=== PATIENT | female | born 1950 | race Caucasian/White ===

== ENCOUNTER 2020-02-05 11:39 | Inpatient (IN) | payer MEDICARE, OTHER ==
[~2020-02-05] VITALS: Ht 165.1 cm; Wt 76.7 kg
[~2020-02-05 11:39] MED LIST: AMITRIPTYLINE H25 MG PO; ASPIRIN325 MG PO; CARVEDILOL6.25 MG PO; CYMBALTA30 MG PO; GABAPENTIN800 MG PO; HYDROCHLOROTHIA25 MG PO; IBUPROFEN400 MG PO; LEVEMIR100 UNIT/1 SC; LIDOCAINE; MONTELUKAST SOD10 MG PO; NEXIUM40 MG PO; NOVOLOG MI100 UNIT/1 SC; SIMVASTATIN20 MG PO; TYLENOL WITH C1 EACH PO; ULTRACET TABLE1 EACH PO
--- OUTSIDE RECORDS SUMMARY | 2020-02-05 11:58 | XMS REPORT | Continuity of Care Document ---
Author Author [facility] Organization [facility] Address [address] [place] [address] Phone Unavailable Care Team Providers Care Manager Credit Name Role Phone Unavailable Unavailable Payers Payer Name Policy Type Policy Number Effective Date Expiration Date S ource Problems This patient has no known problems. Allergies, Adverse Reactions, Alerts Allergy Name Allergy Type Status Severity Reaction(s) Onset Date Inacti ve Date Treating Clinician Comments Source adhesive tape DA Active U 2018-11-17 00:00:00 [facility] blueberry DA Active U 2018-11-17 00:00:00 [facility] blueberry FA Active U 2018-11-17 00:00:00 [facility] No Known Allergies DA Active U 2018-08-25 00:00:00 [facility] adhesive tape DA Active SV 2018-02-14 00:00:00 [facility] adhesive DA Active DC 2018-01-23 00:00:00 [facility] blueberry DA Active MO 2018-01-23 00:00:00 [facility] Medications This patient has no known medications. Procedures This patient has no known procedures. Results Test Description Test Time Test Comments Results Result Comments Source GLUBED 2019-08-06 20:02:00 Test Item GLUBED (test code = GLUBED) 142 mg/dL 74-106 H Performed by certified automatic coil machine operator at [facility] [id number] 16:09:00* Test Item Value Reference Range Interpretation Comments GLUBED (test code = GLUBED) 109 mg/dL 74-106 H Performed by certified automatic coil machine operator at [facility] [id number] 11:24:00* Test Item Value Reference Range Interpretation Comments GLUBED (test code = GLUBED) 186 mg/dL 74-106 H Performed by certified automatic coil machine operator at [facility] [id number] 08:14:00* Test Item Value Reference Range Interpretation Comments GLUBED (test code = GLUBED) 138 mg/dL 74-106 H Performed by certified automatic coil machine operator at [facility] [id number] 20:30:00* Test Item Value Reference Range Interpretation Comments GLUBED (test code = GLUBED) 189 mg/dL 74-106 H Performed by certified automatic coil machine operator at [facility] [id number] 16:40:00* Test Item Value Reference Range Interpretation Comments GLUBED (test code = GLUBED) 131 mg/dL 74-106 H Performed by certified automatic coil machine operator at [facility] [id number] 12:27:00* Test Item Value Reference Range Interpretation Comments GLUBED (test code = GLUBED) 159 mg/dL 74-106 H Performed by certified automatic coil machine operator at [facility] [id number] 08:43:00* Test Item Value Reference Range Interpretation Comments GLUBED (test code = GLUBED) 101 mg/dL 74-106 N Performed by certified automatic coil machine operator at [facility] [id number] 19:53:00* Test Item Value Reference Range Interpretation Comments GLUBED (test code = GLUBED) 192 mg/dL 74-106 H Performed by certified automatic coil machine operator at [facility] [id number] 15:59:00* Test Item Value Reference Range Interpretation Comments GLUBED (test code = GLUBED) 203 mg/dL 74-106 H Performed by certified automatic coil machine operator at [facility] [id number] 11:17:00* Test Item Value Reference Range Interpretation Comments GLUBED (test code = GLUBED) 151 mg/dL 74-106 H Performed by certified automatic coil machine operator at [facility] LIPID PROFILE (CORONARY RISK)2019-08-04 08:58:00* Test Item Value Reference Range Interpretation Comments TRIGLYCERIDES (test code = TRIG) 132 mg/dL 20-150 N CHOLESTEROL (test code = CHOL) 196 mg/dL 0-200 N CHOLESTEROL/HDL RATIO (test code = CHOLHDL) 5.0 RATIO 0-4.9 H RISK ASSOCIATED WITH CHOL/HDL RATIOS: Risk Male Female1/2 AVERAGE 3.43 3.27AVERAGE 4.97 4.442X AVERAGE 9.55 7.053X AVERAGE 23.39 11.04 REFERENCE VALUE IS RELATED TO RISK LEVELS ASRECOMMENDED BY THE J[facility]ANITA. HEART, LUNG, AND BLOOD INST. HDL CHOLESTEROL (test code = HDL) 34 mg/dL 40-60 L LIPOPROTEIN LDL (test code = LDL) 137 mg/dL 100-129 H RN PERSONNEL, CONTACT PHYSICIAN IMMEDIATELY IF THIS IS A STROKE, AMI OR CAROTID STENOSIS PATIENT WHEN THE LDL >100 (1ST OCCURENCE, THIS ADMISSION) Reference Interval: mg/dL mmol/L Optimal <100 <2.6Near/above optimal 100-129 2.6- 3.3Borderline High 130-159 3.4-4.1High 160-189 4.1-4.9Very High >=190 >=4.9========= This LDL result is a direct measurement.========= [id number] 08:58:00* Test Item Value Reference Range Interpretation Comments GLYCOSYLATED HEMOGLOBIN (HA1C) (test code = GLYHGB) 6.9 % HbA1 SUGGESTED DIAGNOSIS: HbA1C (%) Diabetic >6.4Prediabetes 5.7 - 6.4Normal <5.7 ESTIMATED AVERAGE GLUCOSE (test code = EAG) 151 MG/DL [id number] 08:33:00* Test Item Value Reference Range Interpretation Comments GLUBED (test code = GLUBED) 134 mg/dL 74-106 H Performed by certified automatic coil machine operator at [facility] BASIC METABOLIC [id number] 05:48:00* Test Item Value Reference Range Interpretation Comments SODIUM (test code = NA) 137 mmol/L 136-145 N POTASSIUM (test code = K) 4.3 mmol/L 3.5-5.1 N CHLORIDE (test code = CL) 103.0 mmol/L 98-107 N CARBON DIOXIDE (test code = CO2) 28.0 mmol/L 21-32 N ANION GAP (test code = GAP) 10.3 10-20 N GLUCOSE (test code = GLU) 135 mg/dL 74-106 H BLOOD UREA NITROGEN (test code = BUN) 17 mg/dL 7-18 N GLOMERULAR FILTRATION RATE (test code = GFR) > 60 mL/min >=60 Estimated GFR by using Modified MDRD formula.Chronic kidney disease is defined as either kidney damageor GFR <60 mL/min/1.73 m2 for >3 months. CREATININE (test code = CREAT) 0.90 mg/dL 0.55-1.02 N Note change in reference range due to change in reagent. BUN/CREATININE RATIO (test code = BUN/CREA) 18.9 10-20 N CALCIUM (test code = CA) 8.2 mg/dL 8.5-10.1 L BASIC METABOLIC [id number] 05:40:00* Test Item Value Reference Range Interpretation Comments SODIUM (test code = NA) 137 mmol/L 136-145 N POTASSIUM (test code = K) 4.3 mmol/L 3.5-5.1 N CHLORIDE (test code = CL) 103.0 mmol/L 98-107 N CARBON DIOXIDE (test code = CO2) mmol/L 21-32 ANION GAP (test code = GAP) 10-20 GLUCOSE (test code = GLU) mg/dL 74-106 BLOOD UREA NITROGEN (test code = BUN) mg/dL 7-18 GLOMERULAR FILTRATION RATE (test code = GFR) mL/min >=60 CREATININE (test code = CREAT) mg/dL 0.55-1.02 BUN/CREATININE RATIO (test code = BUN/CREA) 10-20 CALCIUM (test code = CA) mg/dL 8.5-10.1 CBC W/AUTO [id number] 05:17:00* Test Item Value Reference Range Interpretation Comments WHITE BLOOD CELL (test code = WBC) 7.6 K/mm3 4.5-12.5 N RED BLOOD CELL (test code = RBC) 3.80 mill/mm3 3.7-5.2 N HEMOGLOBIN (test code = HGB) 10.9 gram/dL 11.5-15.5 L HEMATOCRIT (test code = HCT) 33.9 % 36.0-46.0 L MEAN CELL VOLUME (test code = MCV) 89.2 fL 80-98 N MEAN CELL HGB (test code = MCH) 28.7 picogram 27.0-33.0 N MEAN CELL HGB CONCETRATION (test code = MCHC) 32.2 gram/dL 33.0-36. 0 L RED CELL DISTRIBUTION WIDTH (test code = RDW) 13.1 % 11.6-16. 2 N RED CELL DISTRIBUTION WIDTH SD (test code = RDW-SD) 42.5 fL 37 .0-51.0 N PLATELET COUNT (test code = PLT) 151 K/mm3 150-450 N MEAN PLATELET VOLUME (test code = MPV) 9.4 fL 6.7-11.0 N NEUTROPHIL % (test code = NT%) 74.2 % 39.0-69.0 H IMMATURE GRANULOCYTE % (test code = IG%) 0.5 % 0.0-5.0 N LYMPHOCYTE % (test code = LY%) 16.4 % 25.0-55.0 L MONOCYTE % (test code = MO%) 8.8 % 0.0-10.0 N EOSINOPHIL % (test code = EO%) 0.0 % 0.0-5.0 N BASOPHIL % (test code = BA%) 0.1 % 0.0-1.0 N NUCLEATED RBC % (test code = NRBC%) 0.0 % 0-0 N NEUTROPHIL # (test code = NT#) 5.62 K/mm3 1.8-7.7 N IMMATURE GRANULOCYTE # (test code = IG#) 0.04 x10 3/uL 0-0.03 H LYMPHOCYTE # (test code = LY#) 1.24 K/mm3 1.0-5.0 N MONOCYTE # (test code = MO#) 0.67 K/mm3 0-0.8 N EOSINOPHIL # (test code = EO#) 0.00 K/mm3 0.0-0.5 N BASOPHIL # (test code = BA#) 0.01 K/mm3 0.0-0.2 N NUCLEATED RBC # (test code = NRBC#) 0.00 K/mm3 0.0-0.1 N MANUAL DIFF REQUIRED (test code = MDIFF) NO [id number] 20:19:00* Test Item Value Reference Range Interpretation Comments GLUBED (test code = GLUBED) 160 mg/dL 74-106 H Performed by certified automatic coil machine operator at [facility] [id number] 16:37:00* Test Item Value Reference Range Interpretation Comments GLUBED (test code = GLUBED) 153 mg/dL 74-106 H Performed by certified automatic coil machine operator at [facility] - CT NECK W/O [id number] 14:01:00 Name: HERBIE STONER [facility] : 1950 Age/S: 68 / F [address] [facility] Unit #: [id number] Loc: [place], [place] [address] Phys: Michelle Barrientos MD Acct: [id number] Dis Date: 08/06/2019 Status: DIS IN PHONE #: [phone] Exam Date: 08/03/2019 1304 FAX #: [phone] Reason: ANATOMY OF NECK PRIOR TO SURGERY EXAMS: CPT CODE: [id number] CT NECK W/O CONTRAST 82690 HISTORY: Airway evaluation prior to surgery. COMPARISON: None available. Location: [facility]. CT neck with contrast: Automated exposure control. The visualized brain parenchyma is unremarkable. Unremarkable intraorbital contents. Visualized paranasal sinuses and the mastoid air cells are clear. Extensive resection of the left hard and soft palate with fatty packing. No evidence for mass or mass effect on this noncontrast study. The base of the tongue and oral tongue demonstrating resection on the left side with surgical clips and fatty packing. No mass effect is noted. Postop changes within the mandible with mandibular plate both on the right in the left side stabilizing the mandibles. Symmetrical fossa of Rosenmueller and parapharyngeal spaces. No retropharyngeal collection. No tonsillar collection. The tonsils are not enlarged. Uvula remains midline. Prevertebral space appears unremarkable. The carotid spaces appear unr emarkable. Parotid spaces are unremarkable but partially obscured on the l eft due to artifact from the mandibular hardware. Resected submandibular g lands bilaterally as well. Extensive jaun dissection on the left side. No pathologic adenopathy on either side. Epiglottis and aryepi glottic folds are normal. Vallecula and the piriform sinuses are unremarka ble. The true and false cords are normal. Very small right thyroid gland. Lobular heterogeneous left thyroid gland. Superior mediastinum is unremark able. The lung apices are clear. No lytic or blastic lesions are noted wit hin the bony skeleton. IMPRESSION: Widel y patent airway. No obstruction is noted. Postop changes along the left side along the hard and the soft palate with extensive jaun dissection and resection of the submandibular glands bilaterally. No dissection as well of the left base of the tongue and oral tongue. No evidence of mass or mass effect. No pathologic adenopathy visible. PAGE 1 Signed Report (CONTINUED) Name: HERBIE STONER [facility] : 1950 Age/S: 68 / F [address] Unit #: [id number] Loc: [place] [address] Phys: Michelle Barrientos MD Acct: [id number] Dis Date: 08/06/2019 Status: DIS IN PHONE #: [phone] Exam Date: 08/03/2019 1304 FAX #: [phone] Reason: ANATOMY OF NECK PRIOR TO SURGERY EXAMS: CPT CODE: [id number] CT NECK W/O CONTRAST 56488 <Continued> at 1401 Reported and signed by: Gustavo Tse M.D. CC: Bret Interiano MD; Michelle Barrientos MD Technologist:Carol PedroRT(R),CT CTDI: DLP: Trnscb Date/Time: 08/03/2019 (1401) t.SDR.TH4 Orig Print D/T: S: 08/03/2019 (6477) PAGE 2 Signed Report - CT NECK W/O [id number] 14:01:00 Name: HERBIE STONER [facility] : 1950 Age/S: 68 / [facility] [address] [facility]: [id number] Loc: [place] [address] Phys: Michelle Barrientos MD Acct: [id number] Dis Date: Status: REG [facility] PHONE #: [phone] Exam Date: 08/03/2019 1304 FAX #: [phone] Reason: ANATOMY OF NECK PRIOR TO SURGERY EXAMS: CPT CODE: [id number] CT NECK W/O CONTRAST 76037 HISTORY: Airway evaluation prior to surgery. COMPARISON: None available. Location: [facility]. CT neck with contrast: Automated exposure control. The visualized brain parenchyma is unremarkable. Unremarkable intraorbital contents. Visualized paranasal sinuses and the mastoid air cells are clear. Extensive resection of the left hard and soft palate with fatty packing. No evidence for mass or mass effect on this noncontrast study. The base of the tongue and oral tongue demonstrating resection on the left side with surgical clips and fatty packing. No mass effect is noted. Postop changes within the mandible with mandibular plate both on the right in the left side stabilizing the mandibles. Symmetrical fossa of Rosenmueller and parapharyngeal spaces. No retropharyngeal collection. No tonsillar collection. The tonsils are not enlarged. Uvula remains midline. Prevertebral space appears unremarkable. The carotid spaces appear unremarkable. Parotid spaces are unremarkable but partially obscured on the left due to artifact from the mandibular hardware. Resected submandibular glands bilaterally as well. Extensive jaun dissection on the left side. No pathologic adenopathy on either side. Epiglottis and aryepiglottic folds are normal. Vallecula and the piriform sinuses are unremarkable. The true and false cords are normal. Very small right thyroid gland. Lobular heterogeneous left thyroid gland. Superior mediastinum is unremarkable. The lung apices are clear. No lytic or blastic lesions are noted within the bony skeleton. IMPRESSION: Widely patent airway. No obstruction is noted. Postop changes along the left side along the hard and the soft palate with extensive jaun dissection and resection of the submandibular glands bilaterally. No dissection as well of the left base of the tongue and oral tongue. No evidence of mass or mass effect. No pathologic adenopathy visible. PAGE 1 Signed Report (CONTINUED) Name: HERBIE STONER [facility] : 1950 Age/S: 68 / F [address] [facility] Unit #: [id number] Loc: [place] [address] Phys: Michelle Barrientos MD Acct: [id number] Dis Date: Status: REG [facility] PHONE #: [phone] Exam Date: 08/03/2019 1304 FAX #: [phone] Reason: ANATOMY OF NECK PRIOR TO SURGERY EXAMS: CPT CODE: [id number] CT NECK W/O CONTRAST 47978 <Continued> at 1401 Reported and signed by: Gustavo Tse M.D. CC: Bret Interiano MD; Michelle Barrientos MD Technologist:RT Nidhi(R),CT CTDI: DLP: Trnscb Date/Time: 08/03/2019 (1401) [email or web address] Orig Print D/T: S: 08/03/2019 (6190) PAGE 2 Signed Report [id number] 10:03:00* Test Item Value Reference Range Interpretation Comments GLUBED (test code = GLUBED) 117 mg/dL 74-106 H Performed by certified automatic coil machine operator at [facility] COMPREHENSIVE METABOLIC [id number] 11:51:00* Test Item Value Reference Range Interpretation Comments SODIUM (test code = NA) 137 mmol/L 136-145 N POTASSIUM (test code = K) 4.4 mmol/L 3.5-5.1 N CHLORIDE (test code = CL) 99.0 mmol/L 98-107 N CARBON DIOXIDE (test code = CO2) 32.0 mmol/L 21-32 N ANION GAP (test code = GAP) 10.4 10-20 N GLUCOSE (test code = GLU) 157 mg/dL 74-106 H BLOOD UREA NITROGEN (test code = BUN) 22 mg/dL 7-18 H GLOMERULAR FILTRATION RATE (test code = GFR) 49 mL/min >=60 Estimated GFR by using Modified MDRD formula.Chronic kidney disease is defined as either kidney damageor GFR <60 mL/min/1.73 m2 for >3 months. CREATININE (test code = CREAT) 1.10 mg/dL 0.55-1.02 H Note change in reference range due to change in reagent. BUN/CREATININE RATIO (test code = BUN/CREA) 20.0 10-20 N TOTAL PROTEIN (test code = PROT) 7.6 gram/dL 6.4-8.2 N ALBUMIN (test code = ALB) 3.0 g/dL 3.4-5.0 L GLOBULIN (test code = GLOB) 4.6 gram/dL 2.7-4.2 H ALBUMIN/GLOBULIN RATIO (test code = A/G) 0.7 0.75-1.50 L CALCIUM (test code = CA) 8.7 mg/dL 8.5-10.1 N BILIRUBIN TOTAL (test code = BILT) 0.30 mg/dL 0.0-1.0 N SGOT/AST (test code = AST) 13 IUnit/L 15-37 L SGPT/ALT (test code = ALT) 13 IUnit/L 12-78 N ALKALINE PHOSPHATASE TOTAL (test code = ALKP) 77 IUnit/L 45-117 N Note change in reference range due to change in reagent. COMPREHENSIVE METABOLIC [id number] 11:42:00* Test Item Value Reference Range Interpretation Comments SODIUM (test code = NA) 137 mmol/L 136-145 N POTASSIUM (test code = K) 4.4 mmol/L 3.5-5.1 N CHLORIDE (test code = CL) 99.0 mmol/L 98-107 N CARBON DIOXIDE (test code = CO2) mmol/L 21-32 ANION GAP (test code = GAP) 10-20 GLUCOSE (test code = GLU) mg/dL 74-106 BLOOD UREA NITROGEN (test code = BUN) mg/dL 7-18 GLOMERULAR FILTRATION RATE (test code = GFR) mL/min >=60 CREATININE (test code = CREAT) mg/dL 0.55-1.02 BUN/CREATININE RATIO (test code = BUN/CREA) 10-20 TOTAL PROTEIN (test code = PROT) gram/dL 6.4-8.2 ALBUMIN (test code = ALB) g/dL 3.4-5.0 GLOBULIN (test code = GLOB) gram/dL 2.7-4.2 ALBUMIN/GLOBULIN RATIO (test code = A/G) 0.75-1.50 CALCIUM (test code = CA) mg/dL 8.5-10.1 BILIRUBIN TOTAL (test code = BILT) mg/dL 0.0-1.0 SGOT/AST (test code = AST) IUnit/L 15-37 SGPT/ALT (test code = ALT) IUnit/L 12-78 ALKALINE PHOSPHATASE TOTAL (test code = ALKP) IUnit/L 45-117 CBC W/AUTO [id number] 11:14:00* Test Item Value Reference Range Interpretation Comments WHITE BLOOD CELL (test code = WBC) 5.6 K/mm3 4.5-12.5 N RED BLOOD CELL (test code = RBC) 4.25 mill/mm3 3.7-5.2 N HEMOGLOBIN (test code = HGB) 12.2 gram/dL 11.5-15.5 N HEMATOCRIT (test code = HCT) 37.8 % 36.0-46.0 N MEAN CELL VOLUME (test code = MCV) 88.9 fL 80-98 N MEAN CELL HGB (test code = MCH) 28.7 picogram 27.0-33.0 N MEAN CELL HGB CONCETRATION (test code = MCHC) 32.3 gram/dL 33.0-36. 0 L RED CELL DISTRIBUTION WIDTH (test code = RDW) 12.9 % 11.6-16. 2 N RED CELL DISTRIBUTION WIDTH SD (test code = RDW-SD) 41.9 fL 37 .0-51.0 N PLATELET COUNT (test code = PLT) 181 K/mm3 150-450 N MEAN PLATELET VOLUME (test code = MPV) 9.8 fL 6.7-11.0 N NEUTROPHIL % (test code = NT%) 67.6 % 39.0-69.0 N IMMATURE GRANULOCYTE % (test code = IG%) 0.4 % 0.0-5.0 N LYMPHOCYTE % (test code = LY%) 22.7 % 25.0-55.0 L MONOCYTE % (test code = MO%) 8.9 % 0.0-10.0 N EOSINOPHIL % (test code = EO%) 0.2 % 0.0-5.0 N BASOPHIL % (test code = BA%) 0.2 % 0.0-1.0 N NUCLEATED RBC % (test code = NRBC%) 0.0 % 0-0 N NEUTROPHIL # (test code = NT#) 3.78 K/mm3 1.8-7.7 N IMMATURE GRANULOCYTE # (test code = IG#) 0.02 x10 3/uL 0-0.03 N LYMPHOCYTE # (test code = LY#) 1.27 K/mm3 1.0-5.0 N MONOCYTE # (test code = MO#) 0.50 K/mm3 0-0.8 N EOSINOPHIL # (test code = EO#) 0.01 K/mm3 0.0-0.5 N BASOPHIL # (test code = BA#) 0.01 K/mm3 0.0-0.2 N NUCLEATED RBC # (test code = NRBC#) 0.00 K/mm3 0.0-0.1 N CBC W/AUTO [id number] 11:13:00* Test Item Value Reference Range Interpretation Comments WHITE BLOOD CELL (test code = WBC) K/mm3 4.5-12.5 RED BLOOD CELL (test code = RBC) mill/mm3 3.7-5.2 HEMOGLOBIN (test code = HGB) 12.2 gram/dL 11.5-15.5 N HEMATOCRIT (test code = HCT) 37.8 % 36.0-46.0 N MEAN CELL VOLUME (test code = MCV) fL 80-98 MEAN CELL HGB (test code = MCH) picogram 27.0-33.0 MEAN CELL HGB CONCETRATION (test code = MCHC) gram/dL 33.0-36. 0 RED CELL DISTRIBUTION WIDTH (test code = RDW) % 11.6-16. 2 RED CELL DISTRIBUTION WIDTH SD (test code = RDW-SD) fL 37 .0-51.0 PLATELET COUNT (test code = PLT) K/mm3 150-450 MEAN PLATELET VOLUME (test code = MPV) fL 6.7-11.0 NEUTROPHIL % (test code = NT%) % 39.0-69.0 IMMATURE GRANULOCYTE % (test code = IG%) % 0.0-5.0 LYMPHOCYTE % (test code = LY%) % 25.0-55.0 MONOCYTE % (test code = MO%) % 0.0-10.0 EOSINOPHIL % (test code = EO%) % 0.0-5.0 BASOPHIL % (test code = BA%) % 0.0-1.0 NEUTROPHIL # (test code = NT#) K/mm3 1.8-7.7 LYMPHOCYTE # (test code = LY#) K/mm3 1.0-5.0 MONOCYTE # (test code = MO#) K/mm3 0-0.8 EOSINOPHIL # (test code = EO#) K/mm3 0.0-0.5 BASOPHIL # (test code = BA#) K/mm3 0.0-0.2 - RPLC GASTROJEJNSTY [id number] 13:12:00 Name: HERBIE STONER [facility] : 1950 Age/S: 68 / F [address] Unit #: [id number] Loc: [place] [address] Phys: Nato Li MD Acct: [id number] Dis Date: Status: [facility] PHONE #: [phone] Exam Date: 03/28/2019 1128 FAX #: [phone] Reason: / EXAMS: CPT CODE: [id number] RPLC GASTROJEJNSTY TUBE 19460 Fluoro Time: 91 DAP (Gy m2): 5.9 Air Kerma (mGy): 18 REASON FOR EXAM: Cough GJ tube PROCEDURE: Percutaneous GJ tube replacement [id number]-bg-dvpx time is approximately: 30 minutes FINDINGS: Prior to the procedure, informed consent was obtained after risks and benefits of the procedure were explained to the patient. The patient agreed and wanted to proceed. The patient was brought to specials procedure and placed supine on the table. The abdomen was prepped and draped in the usual fashion. All elements of maximal sterile barrier technique were followed. A Ramos catheter was advanced over the guidewire along the course of the existing GJ tube. After a few attempts, the catheter in the guidewire was succes sfully advanced past the pylorus into the jejunum. Contrast was injected t o document intrajejunal location of the Ramos catheter. The existing c logged GJ tube was removed. A new GJ tube was advanced over the guidewire with the tip positioned within the jejunum. MEDICATIONS: Non e. COMPLICATIONS: None. Blood loss: None Fluoroscopic time:10 sec Fluoroscopic dose:2 mGy IMPRES MARCO A: New GJ tube is ready for use at 1312 Reported and signed by: Samir Mckoy M.D. CC: Danae Dewey; Nato Li MD Te chnologist: MICHELLE [facility] Trnscb Date/T johnson: 03/28/2019 (1312) Bony Orig Print D/T: S: 03/28 (2351) PAGE 1 Signed Report - RPLC GASTROJEJNSTY [id number] 13:12:00 Name: HERBIE STONER [facility] : 1950 Age/S: 68 / F [address] Unit #: [id number] Loc: [place] [address] Phys: Nato Li MD Acct: [id number] Dis Date: Status: REG [facility] PHONE #: [phone] Exam Date: 03/28/2019 1128 FAX #: [phone] Reason: / EXAMS: CPT CODE: [id number] RPLC GASTROJEJNSTY TUBE 72737 Fluoro Time: 91 DAP (Gy m2): 5.9 Air Kerma (mGy): 18 REASON FOR EXAM: Cough GJ tube PROCEDURE: Percutaneous GJ tube replacement Cqxq-fp-mxat time is approximately: 30 minutes FINDINGS: Prior to the procedure, informed consent was obtained after risks and benefits of the procedure were explained to the patient. The patient agreed and wanted to proceed. The patient was brought to specials procedure and placed supine on the table. The abdomen was prepped and draped in the usual fashion. All elements of maximal sterile barrier technique were followed. A Ramos catheter was advanced over the guidewire along the course of the existing GJ tube. After a few attempts, the catheter in the guidewire was succes sfully advanced past the pylorus into the jejunum. Contrast was injected t o document intrajejunal location of the Ramos catheter. The existing c logged GJ tube was removed. A new GJ tube was advanced over the guidewire with the tip positioned within the jejunum. MEDICATIONS: Non e. COMPLICATIONS: None. Blood loss: None Fluoroscopic time:10 sec Fluoroscopic dose:2 mGy IMPRES MARCO A: New GJ tube is ready for use at 1312 Reported and signed by: Samir Mckoy M.D. CC: Danae Dewey; Nato Li MD chnologist: MICHELLE HAYS RRT Trnscb Date/T johnson: 03/28/2019 (0905) Bony Orig Print D/T: S: 03/28 (2384) PAGE 1 Signed Report [id number] 10:42:00* Test Item Value Reference Range Interpretation Comments GLUBED (test code = GLUBED) 123 mg/dL 74-106 H Performed by certified automatic coil machine operator at [facility] PROTHROMBIN [id number] 09:47:00* Test Item Value Reference Range Interpretation Comments PROTHROMBIN TIME PATIENT (test code = PTP) 12.2 seconds 9.0-14.0 N INTERNATIONAL NORMAL RATIO (test code = INR) 1.0 0.8-1.2 N The therapeutic range for oral anticoagulant therapy formost indications is an international normalized ratio (INR)of between 2.0 and 3.0. The recommended therapeutic INRrange for various clinical situations is listed below: Clinical Situation INR range Pulmonary e mbolism treatment (2.0-3.0)Venous thrombosis treatmentVenous thrombosis prophylaxis (high risk surgery)Prevention of systemic embolism from: Acute myocardial infarction Valvular heart disease Atrial fibrillation Mechanical prosthetic heart valves (2.5-3.5) IS PATIENT ON ANTICOAGULANTS? NCOMMENTS TO WATER ANALYST: IN DSUSPECIMEN COMMENTS : PLEASE VERIFY USE OF ANTICOAGULANTCOMMENTS TO WATER ANALYST: IN DUS THROMBOPLASTIN TIME [id number] 09:47:00* Test Item Value Reference Range Interpretation Comments THROMBOPLASTIN TIME PARTIAL (test code = PTT) 38.2 seconds 25.0-36. 5 H IS PATIENT ON ANTICOAGULANTS? NCOMMENTS TO WATER ANALYST: IN DSUSPECIMEN COMMENTS : PLEASE VERIFY USE OF ANTICOAGULANTCOMMENTS TO WATER ANALYST: IN [facility] GASTROJEJNSTY [id number] 16:55:00 Name: HERBIE STONER [facility] : 1950 Age/S: 68 / F [address] Unit #: [id number] Loc: [place] [address] Phys: Nato Li MD Acct: [id number] Dis Date: Status: DEP [facility] PHONE #: [phone] Exam Date: 02/05/2019 1103 FAX #: [phone] Reason: / EXAMS: CPT CODE: [id number] [facility] GASTROJEJNSTY TUBE 45511 Fluoro Time: 34 DAP (Gy m2): 4.92 Air Kerma (mGy): 11 EXAM: Exchange of an occluded gastrojejunal feeding tube under fluoroscopic guidance; INFORMATION: HISTORY of pharyngeal carcinoma; patient presents with an occluded gastrojejunal feeding tube TECHNIQUE AND FINDINGS: Informed consent was obtained and the patient was placed supine on the procedure table. Initial fluoroscopic imaging showed a gastrojejunal tube in place with its retention balloon in the region of the gastric antrum. The patient's skin in the epigastric region was prepped and draped in the usual sterile fashion. An exchange length Glidewire was then inserted through the tube and the tube was then removed. A new 22 Irish soft, Silastic gastrojejunal feeding tube was inserted and positioned with its tip in a proximal jejunal loop. Contrast material was injected showing good position of the tube and outlining normal, nondilated small bowel loops. The retention b alloon was inflated and positioned in the gastric antrum. No complic ations. IMPRESSION: Successful exchange of an occluded g astrojejunal feeding tube using fluoroscopic guidance. Fluoroscopy Time: 34 sec CAK : 11 mGy DAP : 4920 mGy sq cm at 6207 Reported and signed by: Nato Li M.D. CC: Danae Dewey Technologist: MICHELLE HAYS RT Trntnb Date/Time: 02/05/2019 (8301) PujaGRW Orig Print D/T: S: 02/05/2019 (8270) PAGE 1 Signed Report - [facility] GASTROJEJNSTY [id number] 16:55:00 Name: HERBIE STONER [facility] : 1950 Age/S: 68 / F [address] [facility] Unit #: [id number] Loc: [place] [address] Phys: Nato Li MD Acct: [id number] Dis Date: Status: REG SDC PHONE #: [phone] Exam Date: 02/05/2019 1103 FAX #: [phone] Reason: / EXAMS: CPT CODE: [id number] [facility] GASTROJEJNSTY TUBE 31980 Fluoro Time: 34 DAP (Gy m2): 4.92 Air Kerma (mGy): 11 EXAM: Exchange of an occluded gastrojejunal feeding tube under fluoroscopic guidance; INFORMATION: HISTORY of pharyngeal carcinoma; patient presents with an occluded gastrojejunal feeding tube TECHNIQUE AND FINDINGS: Informed consent was obtained and the patient was placed supine on the procedure table. Initial fluoroscopic imaging showed a gastrojejunal tube in place with its retention balloon in the region of the gastric antrum. The patient's skin in the epigastric region was prepped and draped in the usual sterile fashion. An exchange length Glidewire was then inserted through the tube and the tube was then removed. A new 22 Irish soft, Silastic gastrojejunal feeding tube was inserted and positioned with its tip in a proximal jejunal loop. Contrast material was injected showing good position of the tube and outlining normal, nondilated small bowel loops. The retention balloon was inflated and positioned in the gastric antrum. No complications. IMPRESSION: Successful exchange of an occluded gastrojejunal feeding tube using fluoroscopic guidance. Fluoroscopy Time: 34 sec CAK : 11 mGy DAP : 4920 mGy sq cm at 3499 Reported and signed by: Nato Li M.D. CC: Danae Dewey Technologist: MICHELLE HAYS RT Trnscb Date/Time: 02/05/2019 (9250) [email or web address] Orig Print D/T: S: 02/05/2019 (3674) PAGE 1 Signed Report [id number] 09:21:00* Test Item Value Reference Range Interpretation Comments GLUSULMA (test code = GLUSULMA) 113 mg/dL 74-106 H Performed by certified automatic coil machine operator at [facility] - CT ABD PELVIS [id number] 13:24:00 Name: HERBIE STONER [facility] : 1950 Age/S: 68 / F [address] [facility] Unit #: [id number] Loc: [place] [address] Phys: Danae Dewey MD Acct: [id number] Dis Date: Status: DEP CLI PHONE #: [phone] Exam Date: 01/29/2019 1220 FAX #: [phone] Reason: GASTRONOMICL INFECTION EXAMS: CPT CODE: [id number] CT ABD PELVIS W/CONT 18766 REASON FOR EXAM: GASTRONOMICL INFECTION EXAM ORDER DATE: 01/29/2019 11:13 AM Ordering M.D.: Danae Dewey MD PROCEDURE: - CT ABD PELVIS W/CONT contrast enhanced axial CT images were acquired through the abdomen/pelvis at 5 mm intervals. Sagittal and coronal reformatted images were generated. Automated exposure control was utilized for this reduction. Phases of contrast: venous and delayed COMPARISON: None FINDINGS: Visualized thorax: Mild subsegmental atelectasis in the lung bases. Hepatobiliary system: There is dilation of the intrahepatic biliary tree. Gallbladder surgically absent. Pancreas: Atrophic. Spleen: Normal. Adrenal glands: Normal Genitourinary system: Simple cyst in the midpole of the left kidney measuring up to 3.9 cm in size. Otherwise normal. Gastrointestinal tract and appendix: There is a copious amount of stool within the colon. Appendix is not clearly visualized. Small bowel is within normal limits. There is a gastrojejunostomy tube present with the tip terminating in the left lower abdomen. The balloon of the gastrojejunostomy tube appears to terminate the left lower abdomen. Abdominal vascular structures: Atherosclerotic disease is present in the abdominal aorta, iliac arteries, and mesenteric arteries. Peritoneum and retroperitoneum: No free fluid or free air. No omental or mesenteric masses. No abnormal lymph nodes. Musculoskeletal structures and abdominal wall: Degenerative changes PAGE 1 Signed Report (CONTINUED) Name: HERBIE STONER [facility] : 1950 Age/S: 68 / F [address] Unit #: [id number] Loc: [place] [address] Phys: Danae Dewey MD Acct: [id number] Dis Date: Status: DEP CLI PHONE #: [phone] Exam Date: 01/29/2019 1220 FAX #: [phone] Reason: GASTRONOMICL INFECTION EXAMS: CPT CODE: [id number] ABD PELVIS W/CONT 33492 < Continued> are scattered throughout the spine. IMPRESSION: Gastrojejunostomy tube is present and appropriately positioned. Cholecystectomy with physiologic dilatation of the intra and extra hepatic biliary tree. Simple cyst in the left kidney. This does not warrant further evaluation. Heavy colonic stool burden suggests constipation. at 1324 Reported and signed by: Alton Mccollum MD CC: Danae Dewey Technologist:Bronson Stanton RT(R),(MR),(CT); CTDI: DLP: Trnscb Date/Time: 01/29/2019 (1324) [email or web address] Orig Print D/T: S: 01/29/2019 (7105) PAGE 2 Signed Report - CT ABD PELVIS [id number] 13:24:00 Name: HERBIE STONER [facility] : 1950 Age/S: 68 / F [address] Unit #: [id number] Loc: [place] [address] Phys: Danae Dewey MD Acct: [id number] Dis Date: Status: REG CLI PHONE #: [phone] Exam Date: 01/29/2019 1220 FAX #: Reason: GASTRONOMICL INFECTION EXAMS: CPT CODE: [id number] CT ABD PELVIS W/CONT 22048 REASON FOR EXAM: GASTRONO MICL INFECTION EXAM ORDER DATE: 01/29/2019 11:13 AM Jesenia luna M.D.: Danae Dewey MD PROCEDURE: - CT ABD PELVIS W/CONT co ntrast enhanced axial CT images were acquired through the abdomen/pelvis a t 5 mm intervals. Sagittal and coronal reformatted images were generated. Automated exposure control was utilized for this reduction. Phases of contrast: venous and delayed COMPARISON: None FINDINGS: Visualized thorax: Mild subsegmental atelectasis in the lung bases. Hepatobiliary system: There is dilation of the intrahepatic biliary tree. Gallbladder surgically absent. Pa ncreas: Atrophic. Spleen: Normal. Adrenal glands: No rmal Genitourinary system: Simple cyst in the midpole of the left kidney measuring up to 3.9 cm in size. Otherwise normal. Gas trointestinal tract and appendix: There is a copious amount of stool withi n the colon. Appendix is not clearly visualized. Small bowel is within nor mal limits. There is a gastrojejunostomy tube present with the tip termina ting in the left lower abdomen. The balloon of the gastrojejunostomy tube appears to terminate the left lower abdomen. Abdominal vascu lar structures: Atherosclerotic disease is present in the abdominal aorta, iliac arteries, and mesenteric arteries. Peritoneum and retroperi toneum: No free fluid or free air. No omental or mesenteric masses. No a bnormal lymph nodes. Musculoskeletal structures and abdominal wall : Degenerative changes PAGE 1 Signed Report (CONTINUED) Name: HERBIE STONER [facility] : 1950 Age/S: 68 / F [address] [facility] Unit #: [id number] Loc: [place] [address] Phys: Danae Dewey MD Acct: [id number] Dis Date: Status: REG CLI PHONE #: [phone] Exam Date: 01/29/2019 1220 FAX #: [phone] Reason: GASTRONOMICL INFECTION EXAMS: CPT CODE: [id number] ABD PELVIS W/CONT 28792 < Continued> are scattered throughout the spine. IMPRESSION: Gastrojejunostomy tube is present and appropriately positioned. Cholecystectomy with physiologic dilatation of the intra and extra hepatic biliary tree. Simple cyst in the left kidney. This does not warrant further evaluation. Heavy colonic stool burden suggests constipation. at 1324 Reported and signed by: Alton Mccollum MD CC: Danae Dewey Technologist:Bronson Stanton RT(R),(MR),(CT); CTDI: DLP: Trnscb Date/Time: 01/29/2019 (1296) [email or web address] Orig Print D/T: S: 01/29/2019 (9071) PAGE 2 Signed Report CREATININE W ESTIMATED [id number] 10:58:00* Test Item Value Reference Range Interpretation Comments BEDSIDE CREATININE (test code = CREATBED) mg/dL 0.7-1.3 N GLOMERULAR FILTRATION RATE POC (test code = GFRBED) 54 >6 0 LL CREATININE W ESTIMATED [id number] 10:58:00* Test Item Value Reference Range Interpretation Comments BEDSIDE CREATININE (test code = CREATBED) 1.02 mg/dL 0.7-1.3 N GLOMERULAR FILTRATION RATE POC (test code = GFRBED) 57 >6 0 LL Previously reported result: 54 Edited by: RYAN on 01/29/19:94775101/29/19 1058: GFRBED previously reported as: 54 *L - CVRT GASTR TO GSJEJ [id number] 18:29:00 Name: HERBIE STONER [facility] : 1950 Age/S: 67 / F [address] [facility] Unit #: [id number] Loc: [place], [place] [address] Phys: Nato Li MD Acct: [id number] Dis Date: Status: [facility] PHONE #: [phone] Exam Date: 11/17/2018 1003 FAX #: [phone] Reason: EXAMS: CPT CODE: [id number] CVRT GASTR TO GSJEJ TUBE 30859 Fluoro Time: 78 DAP (Gy m2): 8277 Air Kerma (mGy): 25.69 EXAM: Exchange of leaking gastrostomy tube and inversion 2 a gastrojejunal tube. INFORMATION: Patient is dependent on tube feeding. She has had a gastrostomy tube for many years. The indwelling tube is leaking, resulting in inflammation of the adjacent skin in the abdominal wall. TECHNIQUE AND FINDINGS: Informed consent was obtained and the patient was placed supine on the procedure table. 2 g of Ancef were administered intravenously. The patient's skin in the epigastric region was prepped and draped in the usual sterile fashion. Contrast material was injected through the indwelling tube. It showed the tip of this tube as well as the retention balloon being positioned in the first portion of the duodenum. Possibly, this position of the retention balloon may have contributed to gastric leakage. A guide wire was then inserted and was advanced into the proximal jejunum. T he gastrostomy tube was removed after deflating the balloon and a new 22 F rench gastrojejunal feeding tube was inserted. Its retention balloon was i nflated within the stomach. Contrast was injected showing good position of this tube and further outlining normal small bowel loops. No compli cations. IMPRESSION: Successful exchange of a malfunctio gilles gastrostomy tube, which was replaced by a new gastrojejunal feeding tube. Fluoroscopy Time: 78 sec CAK : 25.69 mGy DAP : 8277 mGy sq cm at 1829 Reported and signed by: Nato Li M.D. CC: Nato Li MD Technologist: Victorina Bahena RT(R) Trnscb Date/Time: 11/23/2018 () Javed Orig Print D/T: S: 11/23/2018 (1831) DEVON ANAYA 1 Signed Report - CVRT GASTR TO GSJEJ [id number] 18:29:00 Name: HERBIE STONER [facility] : 1950 Age/S: 67 / F [address] [facility] Unit #: [id number] Loc: [place] [address] Phys: Nato Li MD Acct: [id number] Dis Date: Status: [facility] PHONE #: [phone] Exam Date: 11/17/2018 1003 FAX #: [phone] Reason: EXAMS: CPT CODE: [id number] CVRT GASTR TO GSJEJ TUBE 33429 Fluoro Time: 78 DAP (Gy m2): 8277 Air Kerma (mGy): 25.69 EXAM: Exchange of leaking gastrostomy tube and inversion 2 a gastrojejunal tube. INFORMATION: Patient is dependent on tube feeding. She has had a gastrostomy tube for many years. The indwelling tube is leaking, resulting in inflammation of the adjacent skin in the abdominal wall. TECHNIQUE AND FINDINGS: Informed consent was obtained and the patient was placed supine on the procedure table. 2 g of Ancef were administered intravenously. The patient's skin in the epigastric region was prepped and draped in the usual sterile fashion. Contrast material was injected through the indwelling tube. It showed the tip of this tube as well as the retention balloon being positioned in the first portion of the duodenum. Possibly, this position of the retention balloon may have contributed to gastric leakage. A guidewire was then inserted and was advanced into the proximal jejunum. The gastrostomy tube was removed after deflating the balloon and a new 22 Irish gastrojejunal feeding tube was inserted. Its retention balloon was inflated within the stomach. Contrast was injected showing good position of this tube and further outlining normal small bowel loops. No complications. IMPRESSION: Successful exchange of a malfunctioning gastrostomy tube, which was replaced by a new gastrojejunal feeding tube. Fluoroscopy Time: 78 sec CAK : 25.69 mGy DAP : 8277 mGy sq cm at 1829 Reported and signed by: Nato Li M.D. CC: Nato Li MD Technologist: Victorina Bahena RT(R) Trnscb Date/Time: 11/23/2018 (1828) PujaGRW Orig Print D/T: S: 11/23/2018 (6312) PAGE 1 Signed Report [id number] 09:12:00* Test Item Value Reference Range Interpretation Comments GLUBED (test code = GLUBED) 126 mg/dL 74-106 H Performed by certified automatic coil machine operator at [facility] PROTHROMBIN [id number] 08:54:00* Test Item Value Reference Range Interpretation Comments PROTHROMBIN TIME PATIENT (test code = PTP) 12.1 seconds 9.0-14.0 N INTERNATIONAL NORMAL RATIO (test code = INR) 1.0 0.8-1.2 N The therapeutic range for oral anticoagulant therapy formost indications is an international normalized ratio (INR)of between 2.0 and 3.0. The recommended therapeutic INRrange for various clinical situations is listed below: Clinical Situation INR range Pulmonary e mbolism treatment (2.0-3.0)Venous thrombosis treatmentVenous thrombosis prophylaxis (high risk surgery)Prevention of systemic embolism from: Acute myocardial infarction Valvular heart disease Atrial fibrillation Mechanical prosthetic heart valves (2.5-3.5) IS PATIENT ON ANTICOAGULANTS? NTHROMBOPLASTIN TIME [id number] 08:54:00* Test Item Value Reference Range Interpretation Comments THROMBOPLASTIN TIME PARTIAL (test code = PTT) 35.5 seconds 25.0-36. 5 N IS PATIENT ON ANTICOAGULANTS? NPLATELET [id number] 08:32:00* Test Item Value Reference Range Interpretation Comments PLATELET COUNT (test code = PLT) 178 K/mm3 150-450 N - CONT INJ GS/ DU/ JJ/ [id number] 15:45:00 FAX: Pantera Phipps MD [phone] [place]: [address] St: DEP Name: HERBIE CASEY [facility] : [birth year] Age/S: 67/F [address] [facility] Unit #: [id number] Loc: [place] [address] Phys: Pantera Phipps MD Acct: [id number] Dis Date: Status: DEP ER PHONE #: [phone] Exam Date: 08/25/2018 1541 FAX #: [phone] Reason: g tube replacement EXAMS: CPT CODE: [id number] CONT INJ GS/ DU/ JJ/ GG [address] REASON FOR EXAM: g tube replacement EXAM ORDER DATE: 08/25/2018 2:42 PM Attending [place]: Pantera Phipps MD PROCEDURE: - CONT INJ GS/ DU/ JJ/ GG COMPARISON: FINDINGS: 2 views of the abdomen obtained at 3:30 P M. [employer] scout radiograph shows unremarkable small bowel. Gastrografin inj ected through the existing G-tube shows opacification of the stomach witho ut evidence of extravasation IMPRESSION: Contrast injected shows opacification of the gastric fundus Electronically Si gned by Marisol Mckoy on 08/25/2018 at 1540 Reported and signed by: Samir Mckoy M.D. CC: Pantera Phipps MD Technologist: KYLER MENDEZ, RT(R); ... Trnscrd Date/Time/By: 08/25/2018 (3827) : By: UlisesL Orig Print D/T: S: 08/25/2018 (8159) PAGE 1 Signed Report - CONT INJ GS/ DU/ JJ/ GG 2018-08-25 15:45:00 FAX: Pantera Phipps MD [phone] [place]: St: REG Name: HERBIE CASEY [facility] : [birth year] Age/S: 67/F [address] [facility] Unit #: [id number] Loc: [place] [address] Phys: Pantera Phipps MD Acct: [id number] Dis Date: Status: REG ER PHONE #: [phone] Exam Date: 08/25/2018 1541 FAX #: [phone] Reason: g tube replacement EXAMS: CPT CODE: [id number] CONT INJ GS/ DU/ JJ/ GG [address] REASON FOR EXAM: g tube replacement EXAM ORDER DATE: 08/25/2018 2:42 PM Attending [place]: Pantera Phipps MD PROCEDURE: - CONT INJ GS/ DU/ JJ/ GG COMPARISON: FINDINGS: 2 views of the abdomen obtained at 3:30 P M. [employer] scout radiograph shows unremarkable small bowel. Gastrografin inj ected through the existing G-tube shows opacification of the stomach witho ut evidence of extravasation IMPRESSION: Contrast injected shows opacification of the gastric fundus Electronically Si gned by Marisol Mckoy on 08/25/2018 at 3216 Reported and signed by: Samir Mckoy M.D. CC: Pantera Phipps MD Technologist: KYLER MENDEZ RT(R); ... Trnscrd Date/Time/By: 08/25/2018 (6279) : By: UlisesL Orig Print D/T: S: 08/25/2018 (8138) PAGE 1 Signed Report
[2020-02-05] MEDS ORDERED: ACETAMINOPHEN 325 MG TAB PO ONE (12:30)
[2020-02-05] MEDS ORDERED: ACETAMINOPHEN 325 MG TAB ONE (12:38)
[2020-02-05 12:47] LABS: BASOPHILS % 0.5 % (0.0-1.0); EOSINOPHILS # (AUTO) 0.1 (0.0-0.4); EOSINOPHILS % 1.1 % (0.0-6.0); HEMATOCRIT 40.7 % (34.2-44.1); HEMOGLOBIN 12.8 g/dL (12.0-16.0); LYMPHOCYTES # (AUTO) 1.5 (1.0-3.2); LYMPHOCYTES % 26.9 % (18.0-39.1); MEAN CORPUSCULAR HEMOGLOBIN 27.6 pg (28-32); MEAN CORPUSCULAR HGB CONC 31.4 g/dL (31-35); MEAN CORPUSCULAR VOLUME 87.7 fL (81-99); MONOCYTES # (AUTO) 0.4 (0.2-0.8); MONOCYTES % 7.1 % (4.4-11.3); NEUTROPHILS # (AUTO) 3.5 (2.1-6.9); NEUTROPHILS % 63.9 % (38.7-80.0); PLATELET COUNT 198 x10e3/uL (140-360); RED BLOOD COUNT 4.64 x10e6/uL (3.6-5.1); RED CELL DISTRIBUTION WIDTH 13.8 % (11.7-14.4)
[2020-02-05 12:59] LABS: INR 0.94
[2020-02-05 13:06] LABS: ALBUMIN 3.6 g/dL (3.5-5.0); ALBUMIN/GLOBULIN RATIO 0.8 (0.8-2.0); ANION GAP 17.1 mmol/L (8-16); CALCIUM 9.6 mg/dL (8.4-10.2); CREATININE, SERUM 1.02 mg/dL (0.57-1.11); POTASSIUM 4.1 mmol/L (3.5-5.1)
--- NOTE | 2020-02-05 13:06 | Diagnostic Imaging Report ---
EXAMINATION: CHEST SINGLE (PORTABLE) INDICATION: Trauma COMPARISON: None FINDINGS: LINES/TUBES:EKG leads overlie the chest. LUNGS:The lungs are well-inflated. No focal consolidation or pulmonary edema. PLEURA:No pleural effusion or pneumothorax. MEDIASTINUM:The cardiomediastinal silhouette appears normal in size and shape. Atherosclerotic calcifications of the thoracic aorta. BONES/SOFT TISSUES:No acute osseous injury. ABDOMEN:No free air under the diaphragm. IMPRESSION: No radiographically evidence of acute traumatic thoracic injury. No focal pneumonia or pulmonary edema. Signed by: Darci Espinosa MD on 02/05/2020 1:02 PM
--- NOTE | 2020-02-05 13:09 | Diagnostic Imaging Report ---
EXAMINATION: HIP LEFT 2-3 VW (+/- PELVIS) INDICATION: Trauma COMPARISON: None FINDINGS: AP and lateral radiographs of the left hip and AP view of the pelvis demonstrate a minimally displaced left subcapital femoral neck fracture. Status post ORIF of the right proximal femur with 3 partially threaded screws. No additional acute fractures identified. Mild degenerative changes of both hip joints. Diffuse atherosclerotic arterial calcifications. Nonobstructive bowel gas pattern. No free air. IMPRESSION: Acute minimally displaced subcapital left femoral neck fracture. Signed by: Darci Espinosa MD on 02/05/2020 1:06 PM
--- NOTE | 2020-02-05 13:16 | Diagnostic Imaging Report ---
EXAMINATION: Head CT HISTORY: 69-year-old female status post fall, trauma, pain COMPARISON: Head CT 04/04/2016 TECHNIQUE: Helical axial images of the head were obtained. Reformatted coronal and sagittal images from the axial data. Dose modulation, iterative reconstruction, and/or weight based adjustment of the mA/kV was utilized to reduce the radiation dose to as low as reasonably achievable. Image quality: Motion/streaking artifact limits the evaluation of the skull base and posterior cranial fossa. FINDINGS: Parenchyma: 1. Scatter and moderate confluent periventricular white matter hypodensities, most likely nonspecific chronic microvascular ischemic changes. Prominent perivascular space inferior to the left putamen is unchanged. 2. No mass or hemorrhage. No CT evidence of acute territorial vascular insult. Extra-axial spaces:No abnormal density. No extra-axial fluid collections Brain volume: Normal for age. Ventricles: Mild ventriculomegaly, that is slightly out of proportion to the size of the cortical sulci, thinning and upward displacement of the corpus callosum, with relative partial effacement of the vertex region sulci. Some degree of normal pressure hydrocephalus cannot be excluded in the appropriate clinical setting. Arteries: No density suggestive of thrombus. Dural sinuses: No abnormal density. Foramen magnum: No mass, Chiari malformation, or basilar invagination. Sella: No obvious mass. Paranasal/mastoid sinuses: Imaged portions unremarkable. Skull/Scalp: No lytic or blastic lesions. No fractures. IMPRESSION: 1. No acute post traumatic intracranial hemorrhage. 2. Moderate chronic microvascular ischemic changes, progressed since head CT 04/04/2016. 3. Worsening ventriculomegaly as above. Signed by: Dr. Kathy Weems M.D. on 02/05/2020 1:13 PM
--- NOTE | 2020-02-05 13:22 | Diagnostic Imaging Report ---
EXAMINATION: CT of the cervical spine HISTORY: 69-year-old female status post fall, trauma, pain COMPARISON: None available TECHNIQUE: Multidetector helical axial images were obtained without contrast from the foramen magnum to T1. Dose modulation, iterative reconstruction, and/or weight based adjustment of the mA/kV was utilized to reduce the radiation dose to as low as reasonably achievable. FINDINGS: Alignment: Normal alignment and lordosis Soft tissues: Postoperative changes with multiple surgical clips in the left neck soft tissues (possible prior carotid endarterectomy). Prominent calcified atherosclerotic plaque of the carotid arteries. Vertebrae: Normal height and density. No acute fracture, infection or neoplasm Degenerative changes: C1-C2: Normal C2-C3: Disc osteophyte complex formation, no significant spinal canal or foraminal stenoses. C3-C4: Disc osteophyte complex formation, uncovertebral and facet arthrosis. Mild left foraminal narrowing. Mild canal narrowing. C4-C5: Mild uncovertebral arthrosis. No stenoses C5-C6: Disc osteophyte complex formation, uncovertebral and facet arthrosis. Mild spinal canal and foraminal narrowing. C6-C7: Small disc osteophyte complex formation and uncovertebral arthrosis. Mild left foraminal narrowing. C7-T1: Normal IMPRESSION: 1. No acute cervical spine postraumatic abnormalities. 2. Chronic degenerative changes as above. Note: Acute postraumatic spinal cord, vascular or ligamentous injuries cannot adequately be assessed by CT. Signed by: Dr. Kathy Weems M.D. on 02/05/2020 1:18 PM
[2020-02-05 13:25] LABS: BILIRUBIN,URINE NEGATIVE (NEGATIVE); CLARITY,URINE SL CLOUDY (CLEAR); COLOR,URINE YELLOW (YELLOW); KETONES,URINE 1+ (NEGATIVE); LEUKOCYTE ESTERASE ,URINE NEGATIVE (NEGATIVE); NITRITE,URINE NEGATIVE (NEGATIVE); PROTEIN,URINE DIPSTICK NEGATIVE (NEGATIVE); URINE UROBILINOGEN 0.2 mg/dL (0.2 - 1)
[2020-02-05 13:31] LABS: BACTERIA,URINE MODERATE /HPF; EPITHELIAL CELLS,URINE MODERATE /LPF; MUCUS,URINE MODERATE (RARE)
--- NOTE | 2020-02-05 13:35 | Emergency Department Note ---
History of Present Illnes History of Present Illness Chief Complaint: Extremity Trauma/Pain History of Present Illness This is a 69 year old female . 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 Any updates have been documented here. Past Medical History Recent Fever: No Clinical Suspicion of Infectio: No New/Unexplained Change in Ment: No Other Medical History: Spinal Stenosis Muscle Weakness Acute Kidney Failure Chronic Pain Syndrome Hyperlipidemia Squamous Cell Carcinoma GERD Other Surgery: Left foot stress fracture PEG tube Social History Smoking Cessation: Never Smoker Counseling Performed: No Alcohol Use: None Any Illegal Drug Use: No Physically hurt or threatened: No Other Last Tetanus: UTD Any Pre-Existing Lines (PICC,: No Physical Exam Related Data Allergies: Coded Allergies: adhesive (Verified Allergy, Unknown, 03/31/16) Uncoded Allergies: BLUBERRIES (Allergy, Unknown, 03/31/16) Triage Vital Signs Vital Signs Date Time Temp Pulse Resp B/P (MAP) Pulse Ox O2 Delivery O2 Flow Rate FiO2 02/05/20 12:04 97 14 170/95 Room Air 02/05/20 12:24 97.6 99 Physical Exam CONSTITUTIONAL HENT EYES NECK PULMONARY CARDIOVASCULAR GASTROINTESTINAL GENITOURINARY SKIN MUSCULOSKELETAL NEUROLOGICAL PSYCHOLOGICAL Results Laboratory Result Diagram: 02/05/20 1215 02/05/20 1215 Laboratory Laboratory Tests Test 02/05/20 13:13 02/05/20 12:15 Urine Color Yellow (YELLOW) Urine Clarity Sl cloudy (CLEAR) Urine pH 6 (5 - 7) Urine Specific [place] 1.025 (1.010-1.025) Urine Protein Negative (NEGATIVE) Urine Glucose (UA) Negative (NEGATIVE) Urine Ketones 1+ (NEGATIVE) Urine Blood Trace (NEGATIVE) Urine Nitrite Negative (NEGATIVE) Urine Bilirubin Negative (NEGATIVE) Urine Urobilinogen 0.2 mg/dL (0.2 - 1) Urine Leukocyte Esterase Negative (NEGATIVE) Urine RBC 6-10 /HPF (0-5) Urine WBC 6-10 /HPF (0-5) Urine Epithelial Cells Moderate /LPF (NONE) Urine Bacteria Moderate /HPF (NONE) Urine Mucus Moderate (RARE) White Blood Count 5.46 x10e3/uL (4.8-10.8) Red Blood Count 4.64 x10e6/uL (3.6-5.1) Hemoglobin 12.8 g/dL (12.0-16.0) Hematocrit 40.7 % (34.2-44.1) Mean Corpuscular Volume 87.7 fL (81-99) Mean Corpuscular Hemoglobin 27.6 pg (28-32) Mean Corpuscular Hemoglobin Concent 31.4 g/dL (31-35) Red Cell Distribution Width 13.8 % (11.7-14.4) Platelet Count 198 x10e3/uL (140-360) Neutrophils (%) (Auto) 63.9 % (38.7-80.0) Lymphocytes (%) (Auto) 26.9 % (18.0-39.1) Monocytes (%) (Auto) 7.1 % (4.4-11.3) Eosinophils (%) (Auto) 1.1 % (0.0-6.0) Basophils (%) (Auto) 0.5 % (0.0-1.0) Neutrophils # (Auto) 3.5 (2.1-6.9) Lymphocytes # (Auto) 1.5 (1.0-3.2) Monocytes # (Auto) 0.4 (0.2-0.8) Eosinophils # (Auto) 0.1 (0.0-0.4) Basophils # (Auto) 0.0 (0.0-0.1) Absolute Immature Granulocyte (auto 0.03 x10e3/uL (0-0.1) Prothrombin Time 13.0 seconds (11.9-14.5) Prothromb Time International Ratio 0.94 Sodium Level 141 mmol/L (136-145) Potassium Level 4.1 mmol/L (3.5-5.1) Chloride Level 99 mmol/L (98-107) Carbon Dioxide Level 29 mmol/L (22-29) Anion Gap 17.1 mmol/L (8-16) Blood Urea Nitrogen 18 mg/dL (7-26) Creatinine 1.02 mg/dL (0.57-1.11) Estimat Glomerular Filtration Rate 54 ML/MIN (60-) BUN/Creatinine Ratio 18 (6-25) Glucose Level 120 mg/dL (74-118) Calcium Level 9.6 mg/dL (8.4-10.2) Total Bilirubin 0.3 mg/dL (0.2-1.2) Aspartate Amino Transf (AST/SGOT) 22 IU/L (5-34) Alanine Aminotransferase (ALT/SGPT) 12 IU/L (0-55) Alkaline Phosphatase 75 IU/L (40-150) Troponin I 0.049 ng/mL (0-0.300) Total Protein 8.0 g/dL (6.5-8.1) Albumin 3.6 g/dL (3.5-5.0) Globulin 4.4 g/dL (2.3-3.5) Albumin/Globulin Ratio 0.8 (0.8-2.0) Assessment & Plan Medical Decision Making MDM 69-year-old female presents for left hip pain after fall. Exam shows neurovascularly intact lower 70s bilaterally. Workup sig for Acute minimally displaced subcapital left femoral neck fracture. Patient will require admission for hip fx. Discussed patient with Dr. Tran who have agreed to accept. Patient is appropriate for transfer to floor. Dr. Hackett (Ortho) contacted. Reassessment Reassessment time: 13:34 Reassessment Well appearing, NAD Assessment & Plan Final Impression: (1) Hip fracture Depart Disposition: ADMITTED Last Vital Signs Date Time Temp Pulse Resp B/P (MAP) Pulse Ox O2 Delivery O2 Flow Rate FiO2 02/05/20 12:24 97.6 96 14 170/95 99 Room Air Home Meds Reported Medications Lidocaine Hcl/Pf (XYLOCAINE-MPF 4% AMPUL) 40 Mg/1 Ml Ampul 03/31/16 Tramadol Hcl/Acetaminophen (ULTRACET TABLET) 1 Each Tablet, 1 TAB PEG Q6H PRN for PAIN 03/31/16 Acetaminophen With Codeine (TYLENOL WITH CODEINE #3 TABLET) 1 Each Tablet, 300 MG PO Q6H PRN for PAIN, TAB 03/31/16 Simvastatin (SIMVASTATIN) 20 Mg Tablet, 20 MG PEG HS, EA 03/31/16 Montelukast Sodium (MONTELUKAST SODIUM) 10 Mg Tablet, 10 MG PEG DAILY, #30 TAB 03/31/16 Insulin Detemir (LEVEMIR) 100 Unit/1 Ml Vial, 40 UNITS SC HS 03/31/16 Insulin Detemir (LEVEMIR) 100 Unit/1 Ml Vial, 15 UNITS SC DAILY 03/31/16 Insuln Asp Prt/Insulin Aspart (NOVOLOG MIX 70-30 FLEXPEN SYRN) 100 Unit/1 Ml Insuln.pen, 15 UNITS SC DAILY 03/31/16 Ibuprofen (IBUPROFEN) 400 Mg Tablet, 400 MG PO Q6H PRN for PAIN, TAB 03/31/16 Hydrochlorothiazide (HYDROCHLOROTHIAZIDE) 25 Mg Tablet, 25 MG PEG DAILY, #30 TAB 03/31/16 Gabapentin (GABAPENTIN) 800 Mg Tablet, 800 MG PEG Q8H 03/31/16 Esomeprazole Magnesium (NEXIUM) 40 Mg Capsule.dr, 40 MG PEG DAILY PROTONIX THERAPEUTIC SUBSTITUTE FOR NEXIUM PER [facility] 03/31/16 Duloxetine Hcl (CYMBALTA) 30 Mg Capsule.dr, 30 MG PEG DAILY, #30 CAP 03/31/16 Carvedilol (CARVEDILOL) 6.25 Mg Tablet, 6.25 MG PEG BID 03/31/16 Aspirin (ASPIRIN) 325 Mg Tablet, 325 MG PEG DAILY, TAB 03/31/16 Amitriptyline Hcl (AMITRIPTYLINE HCL) 25 Mg Tablet, 50 MG PEG BID, #30 TAB 03/31/16 Medications in the ED Acetaminophen 650 mg ONCE ONCE PO Last administered on 02/05/20at 13:00; Admin Dose 650 MG; Start 02/05/20 at 12:30; Stop 02/05/20 at 12:31; Status DC Acetaminophen 650 mg STK-MED ONCE .ROUTE ; Start 02/05/20 at 12:38; Stop 02/05/20 at 12:32; Status DC RAMIRO MORENO MD Feb 05, 2020 13:35
--- NOTE | 2020-02-05 13:47 | NUR ---
pt. to be admitted for left hip fracture
[2020-02-05] MEDS: FENTANYL CITRATE/PF 100MCG/2 ML INJ IV PRN ×2 (14:25→15:53)
--- NOTE | 2020-02-05 15:49 | NUR ---
per dr gutiérrez, pt can eat today, but npo p midnight. rbvo twice
--- NOTE | 2020-02-05 16:03 | Diagnostic Imaging Report ---
EXAM: CT Pelvis WITHOUT intravenous contrast INDICATION: Left hip fracture COMPARISON: Left hip radiographs of earlier the same day TECHNIQUE: Pelvis were scanned utilizing a multidetector helical scanner from the iliac crest to the pubic symphysis without administration of IV contrast. Coronal and sagittal reformations were obtained. Routine protocol was performed. IV CONTRAST: None ORAL CONTRAST: None RADIATION DOSE: Total DLP: 343 mGy*cm COMPLICATIONS: None FINDINGS: LINES and TUBES: None. GI TRACT: No abnormal distention, wall thickening, or evidence of bowel obstruction. PELVIC ORGANS/BLADDER: Unremarkable. LYMPH NODES: No lymphadenopathy. VESSELS: Heavy diffuse atherosclerotic calcifications of the distal abdominal aorta and major branches. PERITONEUM / RETROPERITONEUM: No free air or fluid. BONES: Minimally displaced and minimally impacted acute subcapital left femoral neck fracture. Old right proximal femur fracture status post ORIF. Intact hardware without evidence of location. Diffuse osteopenia. No suspicious lytic or blastic lesions. SOFT TISSUES: Unremarkable. IMPRESSION: Minimally displaced and minimally impacted acute subcapital left femoral neck fracture. No additional acute fractures identified. Old right proximal femur fracture status post ORIF. Signed by: Darci Espinosa MD on 02/05/2020 3:59 PM
--- NOTE | 2020-02-05 16:56 | NUR ---
PT TO THE FLOOR AT 1645. VITALS WNL. PT DENIES NEEDS AT THIS TIME.
[2020-02-05 17:00] VITALS: BP 173/75
[2020-02-05 18:37] VITALS: BP 148/84
--- NOTE | 2020-02-05 19:10 | NUR ---
Patient visited in room during nursing rounds. Patient alert and oriented x3. HOB elevated per pt request and extra comfort. Patient has a fractured left hip. Dr Fitzpatrick (Ortho) at bedside interviewing patient. Dr Fitzpatrick informed patient the plan for surgery (Left Hip surgery) tomorrow around 1030. Pt aware and agreed to plan. Call lua within reach. Pt on strict bed rest at this time.
--- NOTE | 2020-02-05 19:22 | NUR ---
ORTHOPEDIC CONSULTATION 69 year old female household ambulator with a walker presents to the ED after a mechanical fall with complaints of left hip pain. She denies pain in any other extremity. No numbness, paresthesias or loss of distal motor function PMDHx: HTN, DM Allerigies: Blueberries, Adhesive Tape Meds: See Reconciliation SurgHx: Right Hip CRPP, Jaw Surgery FamHx: Non-contributory SocHx: Denies Tob, EtOH, or Drugs T 97.9 HR 82 RR 18 BP 148/84 O2 98% AAOx3, NAD Left Hip: No open lesions or sores TTP of Left greater trochanter Unable to straight leg raise, pain with log roll & heal strike Motor: + EHL, FHL, TA, G/S Sensation grossly intact to light touch Pulse s+ DP, Post tib Compartments soft Negative calf tenderness Xrays & CT demonstrate mildly angulated left femoral neck fracture 69 year old female with left femoral neck fracture -Plan for Left Hip CRPP -Analgesics -DVT Prophylaxis -Bedrest -NPO except meds after midnight -IVF while NPO -Hold anticoagulation after midnight Lizzie Fitzpatrick,
[2020-02-05] MEDS ORDERED: HEPARIN SOD (PORCINE) 5,000 UNIT/ML VIAL SC SCH (19:45)
[2020-02-05 20:00] VITALS: BP 135/79
[2020-02-05] MEDS ORDERED: DEXTROSE 50% SYRINGE 50 ML IV PRN (20:45)
[2020-02-05 21:00] VITALS: BP 135/79
[2020-02-05] MEDS: MORPHINE SULFATE 2 MG/ML SYR 1ML IV PRN (21:09)
[2020-02-06] VITALS (7 sets, daily range): BP systolic 96–128; BP diastolic 79–97
[2020-02-06 05:49] LABS: BASOPHILS % 0.4 % (0.0-1.0); EOSINOPHILS # (AUTO) 0.2 (0.0-0.4); EOSINOPHILS % 3.5 % (0.0-6.0); HEMATOCRIT 36.3 % (34.2-44.1); HEMOGLOBIN 11.8 g/dL (12.0-16.0); LYMPHOCYTES # (AUTO) 1.6 (1.0-3.2); LYMPHOCYTES % 29.3 % (18.0-39.1); MEAN CORPUSCULAR HEMOGLOBIN 28.2 pg (28-32); MEAN CORPUSCULAR HGB CONC 32.5 g/dL (31-35); MEAN CORPUSCULAR VOLUME 86.8 fL (81-99); MONOCYTES # (AUTO) 0.4 (0.2-0.8); MONOCYTES % 8.2 % (4.4-11.3); NEUTROPHILS # (AUTO) 3.1 (2.1-6.9); NEUTROPHILS % 58.2 % (38.7-80.0); PLATELET COUNT 188 x10e3/uL (140-360); RED BLOOD COUNT 4.18 x10e6/uL (3.6-5.1); RED CELL DISTRIBUTION WIDTH 13.9 % (11.7-14.4)
--- NOTE | 2020-02-06 06:00 | NUR ---
Patient given a hibiclens bed bath in preparation for surgery this morning. Linens and diaper changed. Pt is NPO. Pt tolerated bath well. Kaylee Jaimes ([employer]) aware pt scheduled for surgery today at 1030.
[2020-02-06 06:06] LABS: ANION GAP 14.8 mmol/L (8-16); CALCIUM 8.8 mg/dL (8.4-10.2); CREATININE, SERUM 0.93 mg/dL (0.57-1.11); POTASSIUM 3.8 mmol/L (3.5-5.1)
[2020-02-06] MEDS ORDERED: ONDANSETRON HCL INJ 2MG/ML 2ML 2 MG/ML VIAL IV PRN (06:15)
[2020-02-06] MEDS ORDERED: HYDRALAZINE HCL 20 MG/ML VIAL IV PRN (06:15)
[2020-02-06] MEDS ORDERED: DEXTROSE 50% SYRINGE 50 ML IV PRN (06:15)
[2020-02-06] MEDS: MORPHINE SULFATE 2 MG/ML SYR 1ML IV PRN ×3 (06:19→21:32)
[2020-02-06] MEDS: CEFTRIAXONE SOD 1 GM/NS 50 ML 50 ML IV SCH (07:00)
--- NOTE | 2020-02-06 07:00 | NUR ---
bedside shift report received pt in stable condition, denies pain at this time, updated on poc vcoied understanding, l ac 20g no ss of infiltration noted, no other co vocied call light in reach will continue to montior
[2020-02-06] MEDS ORDERED: SODIUM CHLORIDE 0.9% 250ML 250 ML ONE (07:01)
[2020-02-06] MEDS: INSULIN LISPRO 100 UNIT/1 ML 3ML VIAL SQ SCH ×4 (07:30→21:15)
[2020-02-06] MEDS ORDERED: BUPIVACAINE HCL 0.5% INJ 30 ML VIAL INJ ONE (09:10)
--- NOTE | 2020-02-06 10:30 | NUR ---
Mike CRUZ for [facility] called for updated on pt status, phone number left in case Dr. teresa has any questions. Mike [phone]
[2020-02-06] MEDS ORDERED: CEFAZOLIN SOD 1 GM/NS 50ML 100 ML IV ONE (10:35)
[2020-02-06] MEDS ORDERED: FENTANYL CITRATE/PF 100MCG/2 ML INJ ONE ×2 (12:07→15:22)
--- NOTE | 2020-02-06 13:20 | NUR ---
pt back to rm from or aaox3 no distress noted, vs stable 106/84, 80, 98.2, 98% 2L nc, dsg to left hip c/d/i, no other co vocied call light in reach will continue to montior
--- NOTE | 2020-02-06 15:10 | NUR ---
FAXED CLINICALS TO [facility]
[2020-02-06] MEDS: CEFAZOLIN SOD 1 GM/NS 50ML 50 ML IV SCH (17:15)
--- NOTE | 2020-02-06 19:20 | NUR ---
Received report from previous nurse. Call light within reach. Patient in bed.
[2020-02-06] MEDS ORDERED: SEVOFLURANE INHAL SOLN 250 ML PEN BTL ONE (19:41)
[2020-02-06] MEDS ORDERED: DEXAMETHASONE SOD PHOS INJ 4 MG/ML VIAL ONE (19:41)
[2020-02-06] MEDS ORDERED: PROPOFOL IV EMULSION 10 MG/ML 20 ML VIAL ONE (19:41)
[2020-02-06] MEDS ORDERED: ONDANSETRON HCL INJ 2MG/ML 2ML 2 MG/ML VIAL ONE (19:41)
[2020-02-06] MEDS ORDERED: LIDOCAINE HCL 2% LOCAL INJ 5 ML SDV VIAL INJ ONE (19:41)
[2020-02-06] MEDS: ENOXAPARIN SOD INJ 40 MG/0.4 ML SYR SC SCH (20:55)
[2020-02-06] MEDS ORDERED: MELATONIN 5 MG TABLET PO PRN (21:00)
[2020-02-06] MEDS: ACETAMINOPHEN 325 MG TAB PO PRN (23:25)
--- NOTE | 2020-02-06 23:31 | NUR ---
AZEEM Valentin approached me at 23:00 regarding swelling of patient's lower face/jaw area. I explained to tje patient and Barbie that the probable underlying cause of the swelling stems from her allergy to adhesives and that she required tape to secure her ETT during surgery. The tape has been removed and she was recently medicated with Morphine for pain. Upon given the option, patient prefers to allow the swelling to reduce naturally on its own, as opposed to receiving steroids.
[2020-02-07] VITALS (8 sets, daily range): BP systolic 96–151; BP diastolic 60–97
[2020-02-07] MEDS: CEFAZOLIN SOD 1 GM/NS 50ML 50 ML IV SCH (02:50)
[2020-02-07] MEDS: MORPHINE SULFATE 2 MG/ML SYR 1ML IV PRN ×2 (03:29→08:46)
[2020-02-07 05:18] LABS: BASOPHILS % 0.4 % (0.0-1.0); EOSINOPHILS # (AUTO) 0.2 (0.0-0.4); EOSINOPHILS % 2.6 % (0.0-6.0); HEMATOCRIT 36.8 % (34.2-44.1); HEMOGLOBIN 11.8 g/dL (12.0-16.0); LYMPHOCYTES # (AUTO) 1.2 (1.0-3.2); LYMPHOCYTES % 15.8 % (18.0-39.1); MEAN CORPUSCULAR HEMOGLOBIN 27.7 pg (28-32); MEAN CORPUSCULAR HGB CONC 32.1 g/dL (31-35); MEAN CORPUSCULAR VOLUME 86.4 fL (81-99); MONOCYTES # (AUTO) 0.8 (0.2-0.8); MONOCYTES % 10.5 % (4.4-11.3); NEUTROPHILS # (AUTO) 5.1 (2.1-6.9); NEUTROPHILS % 70.3 % (38.7-80.0); PLATELET COUNT 155 x10e3/uL (140-360); RED BLOOD COUNT 4.26 x10e6/uL (3.6-5.1); RED CELL DISTRIBUTION WIDTH 13.7 % (11.7-14.4)
[2020-02-07] MEDS: CEFTRIAXONE SOD 1 GM/NS 50 ML 50 ML IV SCH (05:41)
[2020-02-07 05:48] LABS: ALBUMIN/GLOBULIN RATIO 0.7 (0.8-2.0); ANION GAP 17.9 mmol/L (8-16); CALCIUM 8.7 mg/dL (8.4-10.2); CHOL/HDL RATIO 5.3 (3.0-3.6); CREATININE, SERUM 0.94 mg/dL (0.57-1.11); POTASSIUM 3.9 mmol/L (3.5-5.1)
[2020-02-07 06:00] LABS: THYROID STIMULATING HORMONE 3.234 uIU/mL (0.350-4.940)
[2020-02-07] MEDS: ACETAMINOPHEN 325 MG TAB PO PRN (06:22)
--- NOTE | 2020-02-07 07:11 | NUR ---
GAVE BEDSIDE SHIFT REPORT TO ONCOMING NURSE. CALL LIGHT WITHIN REACH. PATIENT IN BED
--- NOTE | 2020-02-07 07:29 | NUR ---
OPERATIVE ORTHOPEDICS NOTE ADDENDUM Operative Date: 02/06/2020 PreOp Dx: Left Valgus Impacted Femoral Neck Fracture PostOp Dx: Left Valgus Impacted Femoral Neck Fracture Operationg Performed: 1. Left Hip Closed Reduction & Percutaneous Pinning 2. Flouroscopic interpretation Estimated Blood Loss: 20cc Elastic Tape Inserter: MINA Reyes Drains: None Anesthesia: General Complications None Implants: Jennifer Cannulated Asnis Screws x 3 6.5 Short Thread (80 mmx2, 75 mm x1) Indications for Procedure Patient is a 69 year old female who sustained a Left Valgus Impacted Femoral Neck Fracture after fall. He was admitted for preoperative medical clearance and taking to the operating room for an intramedullary nailing of the right hip fracture. Consent was signed on the chart. All risks and benefits regarding the procedure were explained. Risks of , infection, nerve or blood vessel injury or bleeding, need for blood transfusion, blood clots, failure to heal, need for further surgery were all explained and consent was signed. Description of Operative Procedure Patient was given Ancef 2 grams intravenously preop. He was taken to the OR where general anesthesia was provided. He was transferred over to the fracture table in supine position where a well padded post was positioned. The right lower extremity was well padded and placed out of the way for fluoroscopy. The operative extremity had abundant padding placed around the foot and ankle and it was placed in a leg monique. The hip was viewed under fluoroscopic interpretation. Under flouroscopic interpretation, the fracture was reduced and held in place on the fracture table. The operative hip was cleaned with a chlorhexidine scrub, then alcohol and chloroprep. The area was followed with toweling out, followed by drying and placement of the shower curtain. After timeout confirming patient identity and laterality, an incision approximately 4 cm was made along the it band lateral to the greater trochanter. 3 guide pins were passed from the lateral femoral cortex just superior to the lesser trochanter to the femoral head. Thes e pins were found to be in good position and provided stability to the fracture. The above mentioned cannulated screws were passed over the pins with care not to perforate the cortex while also being long enough to provide stability. The anterior and posterior superior screws were of 80 mm length and the inferior screw was 75 mm. Under flouroscopic interpretation, the hardware was found to be in good position while also providing stability. After throrough irrigation, the incisions were closed deep with vicryl and monocryl on the skin.. The incisions were cleaned and dressed with 4x4s & Tegaderms. The patient was then gently transferred back to the hospital bed and transferred to recovery without difficulty.
--- NOTE | 2020-02-07 07:35 | NUR ---
PROGRESS NOTE Patient seen & examined. Complaining of pain generalized over body. No numbness, paresthesias or loss of distal motor function VS 97.8 HR 110 RR 18 BP 111/93 O2 97% Left Lower Extremity Dressing clean, dry and intact Motor; + EHL, FHL, TA, G/S Sensation grossly intact Pulse s+ DP, Post tib Compartments soft Negative calf tenderness H/H 11.8/36.8 69 year old female s/p Left Hip CRPP POD#1 Analgesics DVT Prophylaxis PT- WBAT Orthopedically stable for discharge, no acute further orthopedic intervention required at this time. Discharge Instructions -Dressings: Keep dressing on until POD#5. May remove and cover with another clean dry dressing if wound still wet. If incision is dry, may continue to expose to air in clean setting -DVT Prophylaxis: Continue DVT medications until at least 30 days post op -Follow up in 2 weeks in my office for repeat Xrays -Physical Therapy - WBAT, if symptoms do not improve or if they worsen, please have patient come to office sooner than 2 weeks. Thank you for the consultation Lizzie Fitzpatrick, DO [facility] [place].
[2020-02-07] MEDS: INSULIN LISPRO 100 UNIT/1 ML 3ML VIAL SQ SCH ×3 (08:00→16:47)
--- NOTE | 2020-02-07 14:20 | NUR ---
WOUND CARE CONSULT 69 YO FEMALE HX OF LEFT HIP FRACTURE /SURG IBIS 16 0N MODERATE PUP STATUS AND INTERVENTIONS ON ALTERNATING PRESSURE MATTRESS LABS: WBC- 7.32 HGB- 11.8 GLUCOSE-155 HEM A1C -6.5 SKIN ASSESSMENT COMPLETE PATIENT PRESENTS WITH LEFT HIP STERI STRIP POST SURGICAL SITE RECOMMENDATIONS: NURSING TO CONTINUE TO MONITOR PATIENT AND KEEP SKIN CLEAN AND FREE FROM LOOSE STOOL OR IRRITATING MOISTURE AND CONTINUE TO FOLLOW MODERATE PUP INTERVENTIONS NURSING TO CONTINUE TO GET PATIENT OUT OF BED FOR MEALS AND MUCH TOLERATED NURSING TO CLEAN LEFT HIP STERI STRIP POST SURGICAL SITE WITH NORMAL SALINE DAILY AND APPLY BACITRACIN OINTMENT AND COVER WITH ALLEVYN FOAM DRESSING TO PREVENT SHEER FORCE Addendum: 02/07/20 at 1426 by Yusuf Rm RN Amended: Links added.
--- NOTE | 2020-02-07 15:04 | NUR ---
FAXED PT NOTES TO FACILITY
--- NOTE | 2020-02-07 15:49 | NUR ---
[facility] DIS[facility]GE INFORMATION PATIENT HAS BEEN ACCEPTED TO: NAME: AMY ADDRESS:[id number] [facility] ACCEPTING PROCESS CONTROL MANAGER: VIVI RO ACCEPTING MD:LAURIE ROOM:138B NURSE CALL REPORT TO: [phone] IMM SIGNED AND OBTAINED (if applicable): IMM THE FOLLOWING DOCUMENTS MUST ACCOMPANY PATIENT FOR TRANSFER: COPIED CHART: PACKET
[2020-02-07] MEDS: ENOXAPARIN SOD INJ 40 MG/0.4 ML SYR SC SCH (16:48)
--- NOTE | 2020-02-07 17:00 | NUR ---
REPORT CALLED TO HUBERT AT [facility] @ [phone]
--- NOTE | 2020-02-07 19:10 | NUR ---
RECEIVED REPORT FROM PREVIOUS NURSE. CALL LIGHT WITHIN REACH. PATIENT IN BED.
--- NOTE | 2020-02-07 20:34 | NUR ---
PATIENT LEFT VIA STRETCHER COMPLAINING SHE DIDN'T WANT TO LEAVE. PATIENT HAS IV STILL IN PLACE. PATIENT LEFT WITH HER BELONGINGS. TELE WAS REMOVED. EMS TOOK PAPERWORK AND BELONGINGS WITH THE PATIENT.
[2020-02-07] MEDS ORDERED: ATORVASTATIN 20 MG TAB PO SCH (21:00)
[2020-02-08] MEDS ORDERED: BACITRACIN ZINC 15 GM OINT TOP SCH (09:00)
== END 2020-02-07 20:38 | DRG 481 ==
LOC: ER 11:45 → ERHOLD 14:01 → MED/SURG 16:49
PROVIDERS: ADMIT Internal Medicine; ATTEND Internal Medicine
PROC: 0QH734Z Insertion of Internal Fixation Device into Left Upper Femur, Percutaneous Approach (ICD-10-PCS; principal; 2020-02-07)
DX: S72.002A Fracture of unspecified part of neck of left femur, initial encounter for closed fracture (principal); N39.0 Urinary tract infection, site not specified; F03.90 Unspecified dementia, unspecified severity, without behavioral disturbance, psychotic disturbance, mood disturbance, and anxiety; I10 Essential (primary) hypertension; E11.9 Type 2 diabetes mellitus without complications; M19.90 Unspecified osteoarthritis, unspecified site; T78.49XA Other allergy, initial encounter; R22.0 Localized swelling, mass and lump, head; E78.5 Hyperlipidemia, unspecified; Z11.59 Encounter for screening for other viral diseases
CPT/HCPCS: 36415; 70450; 71045; 72125; 72192; 76000; 80048; 80053; 80061; 81001; 82948; 83036; 84443; 84484; 85025; 85610; 85730; 86850; 86900; 87086; 87186; 93005; 97139; 99284; C1713; J0690; J0696; J1100; J1644; J1650; J2001; J2270; J2405; J3010; J7050; L8600; U0002